=== PATIENT | male | born 1950 ===

== ENCOUNTER 2023-01-30 15:15 | Outpatient (CLI) | payer MEDICARE, MEDICAID | END 2023-01-30 23:59 | disposition critical access hospital (66) | LOC: EMS 15:15 | DX: R46.89 Other symptoms and signs involving appearance and behavior (principal); R03.1 Nonspecific low blood-pressure reading; R09.89 Other specified symptoms and signs involving the circulatory and respiratory systems; M79.604 Pain in right leg | CPT/HCPCS: A0425; A0428 ==

== ENCOUNTER 2023-01-30 15:36 | Emergency (ER) | payer MEDICARE, MEDICAID ==
--- NOTE | 2023-01-30 15:38 | ED Physician Documentation ---
History of Present Illness - Stated complaint Stated Complaint: AMS - History obtained from History obtained from: EMS - Additonal information Additional information: This is a 72-year-old male with a repeat ported past medical history of de nora, who resides at home place, who was sent in via EMS today after he apparently had a brief episode where he was unresponsive. Episode lasted about 2 minutes, he continued to have a pulse and was breathing but was not responsive to the nurses. The patient is unable to provide any history or review of systems due to his dementia. I called and spoke with the care facility and they report is different than given by EMS. According to the care facility, the patient was in a position curled up in a ball, holding abdomen and complaining of pain. He had sat down on the floor but did not fall and he was laying in the floor in this position. He was never unconscious or unresponsive according to them. Per paperwork sent from the facility, the patient is a comfort measures only patient and I discussed this with the facility who seemed unaware of this. Review of Systems Unable to obtain: Confused, Dementia PD PAST MEDICAL HISTORY - Past Medical History Past Medical History: Yes Neuro: Dementia - Present Medications Home Medications: Ambulatory Orders Medication Instructions Recorded Confirmed Acetaminophen [Tylenol] 500 mg PO TID 01/30/23 01/30/23 Atorvastatin Calcium 40 mg PO DAILY 01/30/23 01/30/23 Divalproex [Hernán Cardoso] 125 mg PO TID 01/30/23 01/30/23 Escitalopram [Lexapro] 10 mg PO DAILY 01/30/23 01/30/23 Ferrous Gluconate 1 tab PO DAILY 01/30/23 01/30/23 Fluticasone 220 Mcg [Flovent] 120 puffs INH BID 01/30/23 01/30/23 Memantine HCl [Namenda] 10 mg PO BID 01/30/23 01/30/23 QUEtiapine [SEROquel] 50 mg PO BID 01/30/23 01/30/23 clonazePAM [Clonazepam] 0.5 mg PO DAILY 01/30/23 01/30/23 - Allergies Allergies/Adverse Reactions: Allergies Allergy/AdvReac Type Severity Reaction Status Date / Time Iodinated Contrast Media Allergy Unknown Verified 01/30/23 15:47 PD ED PE NORMAL - Vitals Vital signs reviewed: Yes - General General: No acute distress, Well developed/nourished, Other (Awake and alert but confused, not answering questions appropriately.) - HEENT HEENT: Atraumatic, PERRL, EOMI, Ears normal, Moist mucous membranes, Pharynx benign - Neck Neck: Supple, no meningeal sign, No JVD - Cardiac Cardiac: RRR, No murmur, No gallop, No rub - Respiratory Respiratory: No respiratory distress, Clear bilaterally - Abdomen Abdomen: Normal bowel sounds, Soft, Non tender, Non distended - Derm Derm: Normal color, Warm and dry, No rash - Extremities Extremities: No deformity, No tenderness to palpate, Normal ROM s pain, No edema, No calf tenderness / cord - Neuro Neuro: Other (Patient mumbles, he is disoriented. He has no facial droop, he moves all extremities.) Eye Opening: Spontaneous Motor: Obeys Commands (At times. Does move all extremities spontaneously.) Verbal: Confused GCS Score: 14 Results - Vitals Vitals: Vital Signs - 24 hr 01/30/23 01/30/23 15:30 15:42 Temperature 36.2 C L Heart Rate 78 102 H Respiratory 16 16 Rate Blood Pressure 123/87 H O2 Saturation 95 Oxygen O2 Source Room air - Labs Labs: Laboratory Tests 01/30/23 01/30/23 01/30/23 15:50 15:50 15:50 WBC 4.4 L RBC 3.83 L Hgb 9.3 L Hct 31.9 L MCV 83.3 MCH 24.3 L MCHC 29.2 L RDW 14.5 Plt Count 280 MPV 10.1 Neut # (Auto) 2.7 Lymph # (Auto) 1.2 L [place] # (Auto) 0.4 Eos # (Auto) 0.1 Baso # (Auto) 0.0 Absolute Nucleated RBC 0.00 Nucleated RBC % 0.0 Sodium 140 Potassium 4.0 Chloride 102 Carbon Dioxide 29 Anion Gap 9.0 BUN 22 H Creatinine 0.7 Estimated GFR (MDRD) 111 Glucose 114 H Calcium 8.5 Total Bilirubin 0.5 AST 16 ALT 14 Alkaline Phosphatase 90 Troponin I High Sens 3.7 Total Protein 6.8 Albumin 3.7 Globulin 3.1 Albumin/Globulin Ratio 1.2 Lipase 38 Ethyl Alcohol < 5.0 - Rads (name of study) No standard instances Relevant Findings:: Final report received PD Medical Decision Making - ED course Complexity details: reviewed results, re-evaluated patient, considered differential, d/w patient, d/w family ED course: 72-year-old male with a history of dementia as well as prior heavy alcoholism, and encephalopathy who is a DNR and comfort measures only per POLST, presented from the care facility where he resides due to concerns that he may have been in pain. He was apparently doubled over in a position and stating that he was in pain and holding his abdomen. However on arrival here, the patient Appears comfortable. He is not able to reliably answer questions but there is no pain elicited with palpation of his abdomen or the rest of his body. He has stable vital signs here and no other acute physical exam findings. We did obtain labs prior to seeing the POLST and these labs show anemia that I suspect is chronic given his history of alcoholism, but no other significant findings on lab work today. Chest x-ray is negative. The patient was restless and a EKG was not able to be obtained. After we reviewed the POLST form, I called the patient's sister, Guerline, and discussed our exam thus far With her. Given the POLST, I would not recommend any additional treatment at this time but did offer if the power of banking attorney wanted to pursue any additional treatment. At this time the patient does not appear to be any pain, he is very comfortably relaxing on the bed and therefore I would not recommend pursuing any additional workup at this time. I did discuss with Sister that we did not obtain a urinalysis as that would have required a straight cath and it would not be consistent with his POLST wishes but low suspicion for UTI at this time given no other symptoms. We therefore decided to return the patient to his care facility, no additional work-up will be obtained at this time however if symptoms were to recur or worsen, the family could decide to return him to the ER if they desired additional work-up. The patient was transported back to facility via EMS. Departure - Departure Disposition: 01 Home, Self Care Clinical Impression: Acute pain Condition: Good Instructions: ED Acute Pain [facility] Comments: James is in stable condition here, he had no pain on physical exam and no obvious injuries, and it is unclear what caused him to double up in pain earlier today. His labs are generally stable, he is anemic. We did not obtain a urinalysis as he could not provide a sample and he is comfort measures only therefore we did not pursue a straight cath. A chest x-ray was done which was normal. If he has new symptoms he can return to the ER but at this point in time He is stable for discharge back to his facility. Discharge Date/Time: 01/30/23 17:47
[2023-01-30 15:49] VITALS: BP 123/87
[2023-01-30 15:56] LABS: BASOPHILS % (AUTO) 0.7 %; EOSINOPHILS # (AUTO) 0.1 10^3/uL (0.0-0.7); EOSINOPHILS % (AUTO) 2.3 %; HCT - HEMATOCRIT 31.9 % (42.0-52.0); HGB - HEMOGLOBIN 9.3 g/dL (14.0-18.0); LYMPHOCYTES # (AUTO) 1.2 10^3/uL (1.5-3.5); LYMPHOCYTES % (AUTO) 26.4 %; MEAN CORPUSCULAR HEMOGLOBIN 24.3 pg (27.0-31.0); MEAN CORPUSCULAR HGB CONC 29.2 g/dL (32.0-36.0); MEAN CORPUSCULAR VOLUME 83.3 fL (80.0-94.0); MEAN PLATELET VOLUME 10.1 fL (7.4-11.4); MONOCYTES # (AUTO) 0.4 10^3/uL (0.0-1.0); MONOCYTES % (AUTO) 9.3 %; NEUTROPHILS # (AUTO) 2.7 10^3/uL (1.5-6.6); NEUTROPHILS % (AUTO) 61.1 %; PLT - PLATELET COUNT 280 10^3/uL (130-450); RED BLOOD COUNT 3.83 10^6/uL (4.70-6.10); RED CELL DISTRIBUTION WIDTH 14.5 % (12.0-15.0); WHITE BLOOD COUNT 4.4 x10^3/uL (4.8-10.8)
[2023-01-30 16:09] LABS: ALBUMIN 3.7 g/dL (3.2-5.5); ALBUMIN/GLOBULIN RATIO 1.2 (1.0-2.2); ALKALINE PHOSPHATASE 90 IU/L (42-121); ALT ALANINE AMINOTRANSFERASE 14 IU/L (10-60); AST ASPARTATE AMINOTRANSFERASE 16 IU/L (10-42); BILIRUBIN,TOTAL 0.5 mg/dL (0.2-1.0); BUN - BLOOD UREA NITROGEN 22 mg/dL (6-20); CALCIUM 8.5 mg/dL (8.5-10.3); CARBON DIOXIDE - CO2 29 mmol/L (21-32); CHLORIDE 102 mmol/L (101-111); CREATININE 0.7 mg/dL (0.6-1.2); ETOH - ETHANOL < 5.0 mg/dL; GFR - MDRD 111 (>89); GLUCOSE 114 mg/dL (70-100); LIPASE 38 U/L (22-51); SODIUM 140 mmol/L (135-145); TOTAL PROTEIN 6.8 g/dL (6.7-8.2)
--- NOTE | 2023-01-30 16:15 | XRAY Report ---
PROCEDURE: Chest 1 View X-Ray INDICATIONS: ams TECHNIQUE: One view of the chest was acquired. COMPARISON: None. FINDINGS: Surgical changes and devices: None. Lungs and pleura: No pleural effusions or pneumothorax. Lungs are clear. Mediastinum: Mediastinal contours appear normal. Heart size is normal. Bones and chest wall: No suspicious bony lesions. Overlying soft tissues appear unremarkable. IMPRESSION: No acute cardiopulmonary process. Reviewed by: Josh Crowder MD on 01/30/2023 4:14 PM PDT Approved by: Josh Crowder MD on 01/30/2023 4:14 PM PDT Station ID: [id number]
[2023-01-30] MEDS ORDERED: LORazepam 2 MG/ML VIAL IVP STA (16:23)
== END 2023-01-30 17:47 | disposition home or self-care (01) ==
LOC: EDUNIT# → ED 15:36
DX: R52 Pain, unspecified (principal); Z66 Do not resuscitate; Z79.899 Other long term (current) drug therapy
CPT/HCPCS: 36415; 80053; 80320; 83690; 84484; 85025; 99283; 99284

== ENCOUNTER 2023-01-30 17:52 | Outpatient (CLI) | payer MEDICARE, MEDICAID | END 2023-01-30 23:59 | disposition home or self-care (01) | LOC: EMS 17:52 | PROVIDERS: ATTEND Emergency Medicine | DX: F03.911 Unspecified dementia, unspecified severity, with agitation (principal); Z78.1 Physical restraint status | CPT/HCPCS: A0425; A0428 ==

== ENCOUNTER 2023-03-26 20:44 | Outpatient (CLI) | payer MEDICARE, MEDICAID | END 2023-03-26 23:59 | disposition short-term general hospital (02) | LOC: EMS 20:44 | DX: R06.03 Acute respiratory distress (principal); S09.90XA Unspecified injury of head, initial encounter; W19.XXXA Unspecified fall, initial encounter; Y92.092 Bedroom in other non-institutional residence as the place of occurrence of the external cause | CPT/HCPCS: A0425; A0427 ==

== ENCOUNTER 2023-03-27 14:42 | Outpatient (CLI) | payer MEDICARE, MEDICAID | END 2023-03-27 23:59 | disposition E | LOC: EMS 14:42 ==